=== PATIENT | female | born 1960 | race Caucasian/White ===

== ENCOUNTER → 2016-10-15 | Outpatient (CLI) | payer MEDICAID ==
[~2016-10-15] MED LIST: BACL20TA PO; GABA300C PO; LEVO100T PO
== END | disposition home or self-care (01) ==
LOC: CFH 10:34
PROVIDERS: ATTEND Genetic Counselor, MS
DX: E03.9 Hypothyroidism, unspecified (principal)
CPT/HCPCS: 76536